=== PATIENT | female | born 1975 | race Caucasian/White ===

== ENCOUNTER 2020-05-04 17:07 | Emergency (ER) | payer OTHER, SELFPAY ==
[2020-05-04 17:08] VITALS: BP 158/90; PULSE 95; RESP 20; TEMP 36.4; O2SAT 100
--- NOTE | 2020-05-04 17:33 | ED.GENADULT ---
HPI - General Adult General Chief complaint: Unspecified Stated complaint: Numbness right side of face Time Seen by Provider: 05/04/20 17:20 Source: patient and RN notes reviewed Mode of arrival: ambulatory Limitations: no limitations History of Present Illness HPI narrative: 45-year-old female presents with complaints of RT facial numbness and drooping, inability to hold water in mouth while brushing teeth or drinking, and inability to close RT eye with blurred vision for the past 8 hours. Alla says she awaken this morning with RT side facial numbness, drooping, inability to hold water in mouth, or close RT eye (watery with blurry vision). History of diabetes, cataracts, and blood clot behind RT eye. Alla believed she was having an allergic reaction, took 400mg of Advil and 10mg of Loratadine at 10:00am and went back to sleep until approximately 13:00. In which she got ready for work with little improvement in symptoms. At work, 15:30 co-worker noticed her facial drooping and she informed them of facial numbness and blurred vision, she was sent home to seek medical care and she arrived here at [facility]. BENNETT on 05/03/20 no the worst of her life, no numbness or tingling or weakness of upper or lower extremities. Denies falls or head trauma. Denies loss of consciousness, syncopal episodes, seizures, or confusions. No fever or chills. Remains active. The patient reports she have not been diagnosed with COVID-19. The patient reports she is not waiting for the results of a COVID-19 lab test. The patient reports she do not have fever, chills, weakness, fatigue, or facial swelling. The patient reports she do not have a new or worsening cough or shortness of breath. Denies chest pain. The patient reports she do not have any rhinorrhea, congestion, loss of taste, sore throat, nausea, vomiting, abdominal pain, and diarrhea. Tolerating po intake well. Denies recent traveling. Denies concerns for COVID-19 or exposures been home with limited outdoor exposure except for essential household needs, work, and return home. At this time, patient is not suspected of having COVID-19. Some parts of this dictation were generated by voice recognition software and may contain typographical and/or grammatical inaccuracies. Related Data Home Medications Medication Instructions Recorded Confirmed albuterol sulfate 2 puff INHALATION QID 05/04/20 05/04/20 atorvastatin [Lipitor] 80 mg PO DAILY 05/04/20 05/04/20 exenatide microspheres [Bydureon 2 mg SUBCUT WEEKLY 05/04/20 05/04/20 BCise] fluticasone propion-salmeterol 1 inh INHALATION BID 05/04/20 05/04/20 insulin glargine [Basaglar KwikPen 30 unit SUBCUT BID 05/04/20 05/04/20 U-100 Insulin] lisinopril [Zestril] 30 mg PO DAILY 05/04/20 05/04/20 loratadine [Claritin] 10 mg PO DAILY 05/04/20 05/04/20 metformin [Glucophage] 1,000 mg PO BID 05/04/20 05/04/20 Allergies Allergy/AdvReac Type Severity Reaction Status Date / Time erythromycin base Allergy Mild Verified 05/04/20 17:21 Penicillins Allergy Mild Verified 05/04/20 17:21 Sulfa (Sulfonamide Allergy Mild Verified 05/04/20 17:21 Antibiotics) Review of Systems Review of Systems: Narrative: CONSTITUTIONAL: Denies fever, chills, sweats. EYES: Complains of inability to close RT eye and blurred vision. Denies redness, discharge. ENT: Denies rhinorrhea, congestion, sore throat, otalgia. CARDIOVASCULAR: Denies chest pain, palpitations, edema. RESPIRATORY: Denies dyspnea, wheezing, cough. GASTROINTESTINAL: Denies abdominal pain, nausea, vomiting, diarrhea. GENITOURINARY: Denies dysuria, hematuria, abnormal discharge. SKIN: Denies rash or itching. MUSCULOSKELETAL: Denies acute back pain, joint pain, or myalgia. NEUROLOGIC: Denies numbness or focal weakness. Complains of RT side facial drooping and numbness, inability to hold liquids in mouth. PSYCHIATRIC: Denies anxiety or depression. All systems reviewed & are unrem
[2020-05-04 17:43] LABS: Glucose Point of Care 249 (65-105)
--- NOTE | 2020-05-04 17:57 | ECG_ITS ---
Measurements Intervals Palmer Rate: 78 P: 32 MO: 152 QRS: 45 QRSD: 86 T: 22 QT: 371 QTc: 425 Interpretive Statements SINUS RHYTHM BASELINE ARTIFACT- II, III, AVR, AVL, AVF NORMAL ECG Electronically Signed On 05-05-2020 6:38:27 CDT by Dimas Gramajo D.O.
== END 2020-05-04 17:57 | disposition home or self-care (01) ==
PROVIDERS: Emergency Provider Nurse Practitioner Family
DX: G51.0 Bell's palsy (principal); E11.9 Type 2 diabetes mellitus without complications; I10 Essential (primary) hypertension; Z86.718 Personal history of other venous thrombosis and embolism
CPT/HCPCS: 82948; 93005; 99213; G0463

== ENCOUNTER 2022-06-13 19:28 | Emergency (ER) | payer OTHER, SELFPAY ==
[2022-06-13 19:34] VITALS: BP 158/92; PULSE 100; RESP 20; TEMP 36.4; O2SAT 100
[2022-06-13 20:08] LABS: Basophils Absolute Auto 0.1 K/mm3 (0.0-0.1); Basophils Percent Auto 0.4 % (0.2-1.2); Eosinophils Absolute Auto 0.3 K/mm3 (0-0.3); Eosinophils Percent Auto 2.1 % (0-4.4); Hematocrit 36.9 % (37.0-47.0); Hemoglobin 12.9 g/dL (12.0-15.0); Immature Granulocyte Absolute 0.05 K/mm3 (0.00-0.031); Immature Granulocyte Percent A 0.4 % (0-0.5); Lymphocytes Absolute Auto 2.82 K/mm3 (0.9-3.2); Lymphocytes Percent Auto 22.5 % (18.3-44.2); Mean Corpuscular Hemoglobin 29.5 pg (26-34); Mean Corpuscular Volume 84.4 fl (80-100); Mean Platelet Volume 9.5 fl (7.4-10.4); Monocytes Absolute Auto 0.8 K/mm3 (0.1-0.6); Monocytes Percent Auto 6.5 % (2.6-8.5); Neutrophils Absolute Auto 8.6 K/mm3 (1.3-6.7); Neutrophils Percent Auto 68.1 % (45.5-73.1); Platelet Count Result 332 k/mm3 (150-375); Red Blood Count 4.37 M/mm3 (4.2-5.4); Red Cell Distribution Width 15.1 % (11.5-14.5); White Blood Count 12.6 K/mm3 (4.5-10.0)
[2022-06-13 20:34] LABS: Beta HCG Quantitative < 2.39 mIU/ML
--- NOTE | 2022-06-13 21:19 | ED.FEMALEGU ---
HPI - Female Genitourinary General Chief complaint: Vaginal Bleeding Stated complaint: vaginal bleeding Time Seen by Provider: 06/13/22 21:07 History of Present Illness HPI Narrative: pt had d/c with her OBGYN 06/10 for heavy bleeding, initially was feeling fine but a few hours ago started having heavy bleeding again, with pelvic cramping. She had several clots and soaked a pad in the span of 5 minutes so came to the hospital. She had also taking an ibuprofen earlier today, by the time she got to the hospital tonight the bleeding is subsided and so has her pain. Related Data Home Medications Medication Instructions Recorded Confirmed albuterol sulfate 90 mcg/actuation 2 puff inhalation QID 05/04/20 05/04/20 aerosol inhaler atorvastatin 80 mg tablet (Lipitor) 80 mg PO DAILY 05/04/20 05/04/20 exenatide microspheres 2 mg/0.85 2 mg subcut WEEKLY 05/04/20 05/04/20 mL subcutaneous auto-injector (BydureTotsyse) fluticasone 113 mcg-salmeterol 14 1 inh inhalation BID 05/04/20 05/04/20 mcg/actuation breath activated powdr insulin glargine 100 unit/mL (3 30 unit subcut BID 05/04/20 05/04/20 mL) subcutaneous pen (Basaglar KwikPen U-100 Insulin) lisinopril 30 mg tablet (Zestril) 30 mg PO DAILY 05/04/20 05/04/20 loratadine 10 mg tablet (Claritin) 10 mg PO DAILY 05/04/20 05/04/20 metformin 1,000 mg tablet 1,000 mg PO BID 05/04/20 05/04/20 (Glucophage) Allergies Allergy/AdvReac Type Severity Reaction Status Date / Time erythromycin base Allergy Mild Abdominal Verified 06/13/22 19:40 Pain Penicillins Allergy Mild Hives Verified 06/13/22 19:40 Sulfa (Sulfonamide Allergy Mild Hives Verified 06/13/22 19:40 Antibiotics) Review of Systems Review of Systems: CONST: No malaise. HEENT: No sore throat C/V: No chest pain RESP: No shortness of breath GI: Pelvic cramping : Vaginal bleeding M/S: No joint pain. SKIN: No pallor NEURO: No lightheadedness PSYCH: Slightly anxious PMFSH Past Medical History Medical History Asthma Cataract Diabetes Hypertension Surgical History Surgical History History of eye surgery Family History Family History Father , from symptoms related to Empysema Heart disease Mother Diabetes mellitus Social History Social History Smoking status: Never smoker Tobacco type: cigarettes Second hand tobacco smoke exposure: No Alcohol intake: former Substance use: never Gender identity (if verbalized by the patient): Female Exam Narrative: EXAMINATION OF ORGAN SYSTEMS/BODY AREAS: Constitutional: Vital signs per nursing GENERAL:[No acute distress, non-toxic appearing.] HEAD: Normal with no signs of head trauma. EYES: EOMI, conjunctiva normal ENT: Hearing grossly intact LUNGS: Nonlabored breathing. HEART: [Regular rate and rhythm] ABD: [Soft], [nontender to palpation] : Minimal bleeding in vaginal vault, no adnexal or CMT EXT: Normal range of motion SKIN: No pallor NEURO: [Alert and oriented x 3. No gross focal sensory or strength deficits.] PSYCH: Normal affect Course Vital Signs Vital signs: Vital Signs Temperature 97.6 F 06/13/22 19:34 Pulse Rate 100 06/13/22 19:34 Respiratory Rate 20 06/13/22 19:34 Blood Pressure 158/92 H 06/13/22 19:34 Pulse Oximetry 100 06/13/22 19:34 Oxygen Delivery Room Air 06/13/22 19:34 Temperature 97.6 F 06/13/22 19:34 Pulse Rate 100 06/13/22 19:34 Respiratory Rate 20 06/13/22 19:34 Blood Pressure 158/92 H 06/13/22 19:34 Pulse Oximetry 100 06/13/22 19:34 Oxygen Delivery Room Air 06/13/22 19:34 MDM - Female Genitourinary MDM Narrative Medical decision making narrative: 47-year-old female presenting with concern for heavy vaginal bleeding, she is well-david
[2022-06-13] MEDS: KETOROLAC 30 MG/ML VIAL (*BKC) IM (22:00)
== END 2022-06-13 22:26 | disposition home or self-care (01) ==
LOC: ANHED 21:35
PROVIDERS: Emergency Provider Emergency Medicine
DX: N93.9 Abnormal uterine and vaginal bleeding, unspecified (principal); E11.9 Type 2 diabetes mellitus without complications; I10 Essential (primary) hypertension; J45.909 Unspecified asthma, uncomplicated; Z79.84 Long term (current) use of oral hypoglycemic drugs; Z79.4 Long term (current) use of insulin
CPT/HCPCS: 36415; 84702; 85025; 96372; 99284; J1885

== ENCOUNTER 2024-08-09 09:45 | Emergency (ER) | payer BC, SELFPAY ==
--- NOTE | 2024-08-09 09:45 | ED.URI ---
HPI - URI/Sore Throat General Chief Complaint: Upper Respiratory Infection Stated Complaint: Sore Throat/Ears Irritation Time Seen by Provider: 08/09/24 09:45 Source: patient Mode of arrival: ambulatory Limitations: no limitations History of Present Illness HPI Narrative: Alla is a 49-year-old female patient presenting to the clinic today with complaints of sore throat and ear discomfort x1 week. She reports has been dealing with a sore throat swollen lymph nodes for the past week. Also reports bilateral ear pain when swallowing. She denies any fevers, chills, body aches. Did have cold symptoms a week prior to the symptoms. MD elicited complaint: sore throat and nasal congestion Related Data Home Medications ?Medication ?Instructions ?Recorded ?Confirmed ?Last Taken ?Type albuterol sulfate 90 mcg/actuation 2 puff inhalation QID 05/04/20 05/04/20 Unknown History aerosol inhaler atorvastatin 80 mg tablet (Lipitor) 80 mg PO DAILY 05/04/20 05/04/20 Unknown History exenatide microspheres 2 mg/0.85 2 mg subcut WEEKLY 05/04/20 05/04/20 Unknown History mL subcutaneous auto-injector (Bydureon BCise) fluticasone 113 mcg-salmeterol 14 1 inh inhalation BID 05/04/20 05/04/20 Unknown History mcg/actuation breath activated powdr insulin glargine 100 unit/mL (3 30 unit subcut BID 05/04/20 05/04/20 Unknown History mL) subcutaneous pen (Basaglar KwikPen U-100 Insulin) lisinopril 30 mg tablet (Zestril) 30 mg PO DAILY 05/04/20 05/04/20 Unknown History loratadine 10 mg tablet (Claritin) 10 mg PO DAILY 05/04/20 05/04/20 Unknown History metformin 1,000 mg tablet 1,000 mg PO BID 05/04/20 05/04/20 Unknown History (Glucophage) Allergies Allergy/AdvReac Type Severity Reaction Status Date / Time erythromycin base Allergy Mild Abdominal Verified 08/09/24 09:52 Pain Penicillins Allergy Mild Hives Verified 08/09/24 09:52 Sulfa (Sulfonamide Allergy Mild Hives Verified 08/09/24 09:52 Antibiotics) Review of Systems Review of Systems: Pertinent positives per HPI. Patient denies any fever, chills, rash, headache, visual changes, dizziness, cough, shortness of breath, chest pain, palpitations, nausea, vomiting, diarrhea, constipation, abdominal pain, or any urinary issues. [facility] Past Medical History Medical History Cataract Asthma Hypertension Diabetes Surgical History Surgical History History of eye surgery Family History Family History Father , from symptoms related to Empysema Heart disease Mother Diabetes mellitus Social History Social History Smoking status: Never smoker Tobacco type: cigarettes Second hand tobacco smoke exposure: No Alcohol intake: former Substance use: never Occupation/Education: occupation Gender identity (if verbalized by the patient): Female Comments At the time of my signature, I reviewed and agree with the nursing past medical, surgical, social, and family history. There is no relevant family history pertinent to the patient complaint. Exam Narrative: General: Well-developed, well nourished, in no apparent distress Head: Normocephalic, atraumatic Eyes: Pupils equally round and reactive to light bilaterally, EOM intact, sclera and conjunctive clear, no discharge, lids normal Ears: TMs intact and clear, ear canals clear, no drainage, grossly hearing normal. Nose: Nares patent, clear nasal discharge, no inflammation, no sinus tenderness. Mouth: Oral pharynx red without lesions or masses, good dentition, MMM. Neck: Supple, trachea midline, no enlargement of anterior or posterior cervical nodes, no thyroid masses or goiter palpable. Cardio: Regular rate and rhythm, s1 and s2 normal, no murmur appreciated. Resp: Clear to auscultation bilaterally, no rhonchi, rales, wheezing or rubs Course Course Emergency Course: Portions of this record may have been created with voice recognition software. Level of Care: Express Care Visit Vital Signs Vital signs: Vital Signs Temperature 36.3 C L 08/09/24 09:56 Pulse Rate 88 08/09/24 09:56 Respiratory Rate 16 08/09/24 09:56 Blood Pressure 154/94 H 08/09/24 09:56 Pulse Oximetry 99 08/09/24 09:56 Oxygen Delivery Room Air 08/09/24 09:56 Temperature 36.3 C L 08/09/24 09:56 Pulse Rate 88 08/09/24 09:56 Respiratory Rate 16 08/09/24 09:56 Blood Pressure 154/94 H 08/09/24 09:56 Pulse Oximetry 99 08/09/24 09:56 Oxygen Delivery Room Air 08/09/24 09:56 Vital signs reviewed MDM - URI/Sore Throat MDM Narrative Medical decision making narrative: At the time of visit patient is resting comfortably on the exam table. Patient appears to be nontoxic. Labs: Strep test was performed and is negative in the clinic today. Strep culture sent to lab Plan: I suspect patient has viral pharyngitis. We will send strep for culture. Supportive measures were discussed with the patient and they voiced understanding discharge instructions and agrees to treatment plan. Return precautions reviewed Differential Diagnosis Differential diagnosis: Likely upper respiratory infection, otitis media, sinusitis, viral infection, bronchitis, influenza, pharyngitis and other (COVID) Discharge Plan Discharge Clinical Impression: Pharyngitis Qualifiers: Pharyngitis/tonsillitis etiology: unspecified etiology Qualified Code(s): J02.9 - Acute pharyngitis, unspecified Patient Disposition: Home, Self-Care Condition: Stable Instructions: Antibiotic Form, Pharyngitis (ED) Additional Instructions: Strep test was negative in the clinic today. We will send strep for culture if this comes back positive we will contact you in place you on antibiotics at that time. May take Sudafed as needed for nasal congestion. Increase fluids and stay well hydrated Tylenol/motrin for pain/fever Flonase and OTC antihistamines as directed Vicks vapor rub to open sinuses Sinus rinses for congestion Cepacol spray, cough drops, throat lozenges, warm tea with honey/lemon, gargle salt water to soothe throat BRAT diet for diarrhea Clear liquids x 24 hours then advance as tolerated for nausea/vomiting Go to the ED if you develop a worsening in your condition- high fever not controlled by Tylenol or Motrin, dehydration, weakness, lethargy, shortness of breath, or chest pain. Follow up with your PCP in 3-5 days if symptoms persist. Patient Language: Cook Islander Prescriptions: No Action prednisone 20 mg tablet 80 mg PO DAILY 7 Days Qty: 28 0RF valacyclovir 1 gram tablet 1,000 mg PO TID 7 Days Qty: 21 0RF atorvastatin [Lipitor] 80 mg Tablet 80 mg PO DAILY metformin [Glucophage] 1,000 mg Tablet 1,000 mg PO BID lisinopril [Zestril] 30 mg Tablet 30 mg PO DAILY albuterol sulfate 90 mcg/actuation Hfa Aerosol Inhaler 2 puff INHALATION QID loratadine [Claritin] 10 mg Tablet 10 mg PO DAILY Basaglar KwikPen U-100 Insulin 100 unit/mL (3 mL) Insulin Pen 30 unit SUBCUT BID fluticasone propion-salmeterol 113-14 mcg/actuation Aerosol Powdr Breath Activated 1 inh INHALATION BID Bydureon BCise 2 mg/0.85 mL Auto-Injector 2 mg SUBCUT WEEKLY Follow-up/Referrals: UNKNOWN,DOCTOR [Non-Staff] - Time of Disposition: 10:16 Quality NIHSS Nursing Documentation ED NIHSS nursing documentation: reviewed/agree
[2024-08-09 09:56] VITALS: BP 154/94; PULSE 88; RESP 16; TEMP 36.3; O2SAT 99
[2024-08-09 10:11] LABS: EDSTREPNEGPOS1 Negative (Negative)
== END 2024-08-09 10:16 | disposition home or self-care (01) ==
PROVIDERS: Emergency Provider Nurse Practitioner Family
DX: J02.9 Acute pharyngitis, unspecified (principal); E11.9 Type 2 diabetes mellitus without complications; I10 Essential (primary) hypertension
CPT/HCPCS: 87081; 87880; 99213; G0463